=== PATIENT | male | born 1985 | race Caucasian/White ===

== ENCOUNTER 2021-01-11 12:26 | Observation (INO) | payer SELFPAY ==
[2021-01-11 14:09] VITALS: BMI 54.5
[2021-01-11] MEDS ORDERED: Acetaminophen 325 MG TAB PO PRN (14:38)
[2021-01-11] MEDS ORDERED: Enoxaparin Sodium 40 MG/0.4 ML SYRINGE SC SCH (14:45)
[2021-01-11] MEDS ORDERED: hydrALAZINE 20 MG/ML VIAL SLOW IVP PRN (15:27)
[2021-01-11] MEDS: Gabapentin 100 MG CAP PO SCH ×2 (15:30→21:51)
[2021-01-11] MEDS ORDERED: Lorazepam 2 MG/ML VIAL SLOW IVP SCH (16:15)
[2021-01-11 18:49] LABS: Amphetamine Not Detected (NotDetected); Barbiturates Screen Not Detected (NotDetected); Benzodiazepine Screen Not Detected (NotDetected); Cocaine Metabolite Screen Not Detected (NotDetected); Methadone Not Detected (NotDetected); Methamphetamine Not Detected (NotDetected); Opiate Screen Not Detected (NotDetected); Oxycodone Screen Not Detected (NotDetected); Phencyclidine (PCP) Not Detected (NotDetected); THC/Cannabinoid Screen Not Detected (NotDetected); Tricyclic Screen Not Detected (NotDetected)
[2021-01-11] MEDS: Atorvastatin Calcium 40 MG TAB PO SCH (21:51)
[2021-01-12 04:08] LABS: #Basophils 0.1 10x3/uL (0.0-0.2); #Eosinphils 0.4 10x3/uL (0.0-0.5); #Monocytes 0.9 10x3/uL (0.0-1.1); %Basophils 0.8 % (0.0-2.0); %Eosinophils 4.7 % (0.0-6.0); %Lymphocytes 25.3 % (18.0-47.0); %Monocytes 10.8 % (0.0-10.0); %Neutrophils 57.9 % (40.0-75.0); Hemoglobin 13.9 g/dL (13.5-17.5); Mean Corpuscular HGB CONC 33.7 g/dL (32.0-36.0); Mean Corpuscular Hemoglobin 28.4 pg (27.0-33.0); Mean Corpuscular Volume 84.1 fl (81.2-95.1); Mean Platelet Volume 10.2 fl (7.4-10.4); Platelet Count 237 10x3/uL (150-450); RBC Distribution Width 12.9 % (11.5-14.5); White Blood Cell (WBC) Count 8.7 10x3/uL (3.5-10.5)
[2021-01-12 04:23] LABS: Anion Gap 13 mmol/L (10-20); BUN (Urea Nitrogen) 15 mg/dL (8.9-20.6); Calc. Creatinine Clearance 278 mL/min (70-130); Calcium 8.6 mg/dL (7.8-10.44); Carbon Dioxide 24 mmol/L (22-29); Chloride 108 mmol/L (98-107); Cholesterol 155 mg/dl (< 200 Desired); Glucose 107 mg/dL (70-105); HDL Cholesterol 31 mg/dL (>60 Neg Risk); LDL Cholesterol, Calculated 104 mg/dL; Potassium 4.1 mmol/L (3.5-5.1); Sodium 141 mmol/L (136-145); Triglycerides 101 mg/dL (Less than 150)
[2021-01-12 08:28] LABS: Cardiac Risk 4.9 (Less than 4.5)
[2021-01-12] MEDS: Aspirin 81 mg Enteric Coated Tablet PO SCH (09:04)
[2021-01-12] MEDS: Gabapentin 100 MG CAP PO SCH ×3 (09:04→20:54)
[2021-01-12] MEDS: Enoxaparin Sodium 40 MG/0.4 ML SYRINGE SC SCH (09:05)
[2021-01-12 11:08] LABS: Hemoglobin A1c 5.4 % (4.0-6.0)
[2021-01-12 14:00] LABS: SARS-CoV-2 PCR NAA for Saliva Not Detected (NotDetected)
[2021-01-12] MEDS: Atorvastatin Calcium 40 MG TAB PO SCH (20:54)
[2021-01-13] MEDS: Aspirin 81 mg Enteric Coated Tablet PO SCH (08:59)
[2021-01-13] MEDS: Enoxaparin Sodium 40 MG/0.4 ML SYRINGE SC SCH (08:59)
[2021-01-13] MEDS: Gabapentin 100 MG CAP PO SCH (08:59)
[2021-01-13 09:54] VITALS: BP 140/93; TEMP 96.7
== END 2021-01-13 11:38 | disposition home or self-care (01) ==
LOC: CSHTELE 13:43
PROVIDERS: ADMIT Internal Medicine; ATTEND Physician Assistant
DX: G45.9 Transient cerebral ischemic attack, unspecified (principal); I10 Essential (primary) hypertension; E66.01 Morbid (severe) obesity due to excess calories; Z20.822 Contact with and (suspected) exposure to COVID-19
CPT/HCPCS: 70551; 80048; 80061; 80306; 83036; 84443; 85025; 93306; 93880; 96372; G0378; J1650; U0003; U0005

== ENCOUNTER 2021-04-21 12:26 | Outpatient (CLI) | payer SELFPAY | END 2021-04-21 12:27 | disposition home or self-care (01) | LOC: CSHRAD 12:26 | PROVIDERS: ATTEND Physician Assistant | DX: R20.2 Paresthesia of skin (principal) | CPT/HCPCS: 72100 ==

== ENCOUNTER 2021-07-19 15:57 | Emergency (ER) | payer SELFPAY ==
[2021-07-19] MEDS ORDERED: Lidocaine Viscous Sol 2% 15 ml UD Cup ONE (17:07)
[2021-07-19] MEDS ORDERED: Mag-Al Plus 1200 MG/1200 MG/120 MG/30 ML UDCUP ONE (17:07)
== END 2021-07-19 17:54 | disposition home or self-care (01) ==
LOC: CSHERS 15:57
DX: R09.89 Other specified symptoms and signs involving the circulatory and respiratory systems (principal); I10 Essential (primary) hypertension; E78.00 Pure hypercholesterolemia, unspecified; F17.210 Nicotine dependence, cigarettes, uncomplicated; Z86.73 Personal history of transient ischemic attack (TIA), and cerebral infarction without residual deficits
CPT/HCPCS: 99283

== ENCOUNTER 2022-04-25 11:12 | Emergency (ER) | payer SELFPAY ==
[2022-04-25] MEDS ORDERED: Ketorolac Tromethamine 30 MG/ML VIAL ONE (13:27)
== END 2022-04-25 13:31 | disposition home or self-care (01) ==
LOC: CSHERS 11:12
DX: M79.644 Pain in right finger(s) (principal); I10 Essential (primary) hypertension; E78.00 Pure hypercholesterolemia, unspecified; Z87.891 Personal history of nicotine dependence
CPT/HCPCS: 96372; J1885